=== PATIENT | female | born 1965 | race Caucasian/White ===

== ENCOUNTER 2018-07-28 00:24 | Observation (INO) | payer OTHER, SELFPAY ==
--- OUTSIDE RECORDS SUMMARY | 2018-07-28 00:26 | XMS REPORT ---
:1965 Author Organization eClinicalWorks Care Team Providers Name Role Phone [place], Ragini Provider Role Unavailable Allergies, Adverse Reactions, Alerts Substance Reaction Event Type Nitrofurantoin Macrocrystal tacycardia with PVS's Drug Allergy Cardizem rash Drug Allergy Problems Problem Type Condition Code Onset Dates Condition Status Problem Atrial fibrillation I48.91 Active Problem Hypertension I10 Active Assessment Atrial fibrillation I48.91 Active Assessment Hypertension I10 Active Medications Medication Code Code Instructions Start End Date Status Dosage System Date Bisoprolol [facility] 57480909365 5 MG Oral Once a Active take 1/2 Fumarate day tablet by mouth once a day Results No Known Results Summary Purpose eClinicalWorks Submission
--- OUTSIDE RECORDS SUMMARY | 2018-07-28 00:26 | XMS REPORT ---
:1965 Author Organization eClinicalWorks Care Team Providers Name Role Phone Ragini Pack Provider Role Unavailable Allergies, Adverse Reactions, Alerts Substance Reaction Event Type Nitrofurantoin Macrocrystal tacycardia with PVS's Drug Allergy Cardizem rash Drug Allergy Problems Problem Type Condition Code Onset Dates Condition Status Problem Atrial fibrillation I48.91 Active Assessment Encounter for screening mammogram Z12.31 Active for breast cancer Problem Hypertension I10 Active Assessment Well woman exam with routine Z01.419 Active gynecological exam Medications Medication Code System Code Instructions Start End Date Status Dosage Date Bisoprolol [facility] 21732069206 5 MG Oral Active TAKE 1/2 Fumarate TABLET BY MOUTH ONCE A DAY Results No Known Results Summary Purpose eClinicalWorks Submission
--- OUTSIDE RECORDS SUMMARY | 2018-07-28 00:26 | XMS REPORT ---
:1965 Author Organization eClinicalWorks Care Team Providers Name Role Phone Ragini Pack Provider Role Unavailable Allergies No Known Allergies Problems Problem Type Condition Code Onset Dates Condition Status Problem Atrial fibrillation I48.91 Active Problem Hypertension I10 Active Medications No Known Medications Results No Known Results Summary Purpose eClinicalWorks Submission
[2018-07-28 02:11] LABS: Absolute Lymphocytes (CBC) 1.2 K/uL (0.7-4.9); Absolute Monocytes 0.3 K/uL (0.1-1.3); Absolute Neutrophil 7.9 K/uL (1.8-8.0); Basophils % 0.1 % (0-1.3); Eosinophils % 0.2 % (0-4.4); Hematocrit 42.6 % (36.0-45.0); Lymphocytes % 12.8 % (15.3-44.8); MPV 8.6 fL (7.6-11.3); Monocytes % 3.4 % (3.3-12.3)
[2018-07-28 02:19] LABS: Protime INR 1.07
[2018-07-28 02:35] LABS: ALT/SGPT 26 U/L (12-78); AST/SGOT 17 U/L (15-37); Albumin 4.2 g/dL (3.4-5.0); Alkaline Phosphatase 57 U/L (45-117); BUN Blood Urea Nitrogen 9 mg/dL (7-18); Bicarbonate 26 mmol/L (21-32); Bilirubin Direct 0.1 mg/dL (0-0.2); Bilirubin Total 0.4 mg/dL (0.2-1.0); Glucose Level 98 mg/dL (74-106); NT PRO-BNP 63 pg/mL (<125); Potassium 3.7 mmol/L (3.5-5.1); Protein, Total 7.6 g/dL (6.4-8.2); Sodium Level 141 mmol/L (136-145); Troponin (Emerg Dept Use Only) < 0.02 ng/mL (0.0-0.045)
[2018-07-28] MEDS ORDERED: METOPROLOL TARTRATE 5 MG/5 ML INJ IV ONE (02:45)
--- NOTE | 2018-07-28 03:40 | ER ---
Nurse's Notes [facility] Name: Keke Cantrell Age: 53 yrs Sex: Female : 1965 Arrival Date: 07/28/2018 Time: 00:25 Bed 19 Private MD: Diagnosis: Ventricular premature depolarization Presentation: 07/28 00:34 Presenting complaint: Patient states: palpitations started today, Sunday night pt tl3 states that she was feeling dizzy, feels her heart beat "skipping". Transition of care: patient was not received from another setting of care. Onset of symptoms. Risk Assessment: Do you want to hurt yourself or someone else? Patient reports no desire to harm self or others. Initial Sepsis Screen: Does the patient meet any 2 criteria? No. Patient's initial sepsis screen is negative. Does the patient have a suspected source of infection? No. Patient's initial sepsis screen is negative. Care prior to arrival: None. 00:34 Method Of Arrival: Ambulatory tl3 00:34 Method Of Arrival: Ambulatory tl3 00:34 Acuity: ALENA 3 tl3 Triage Assessment: 00:39 General: Appears uncomfortable, slender, well groomed, well developed, well nourished, tl3 Behavior is calm, cooperative, appropriate for age. Pain: Complains of pain in right sided headache. 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 - Social history:: Smoking status: Patient/guardian denies using tobacco, never smoked. - Ebola Screening: : No symptoms or risks identified at this time. Screenin:00 Abuse screen: Denies threats or abuse. Denies injuries from another. Nutritional rr5 screening: No deficits noted. Tuberculosis screening: No symptoms or risk factors identified. Fall Risk None identified. Assessment: 01:00 General: Appears in no apparent distress. uncomfortable, Behavior is calm, cooperative, rr5 appropriate for age. Pain: Denies pain. Neuro: Level of Consciousness is awake, alert, obeys commands, Oriented to person, place, time, situation. Cardiovascular: Reports palpitations, Capillary refill < 3 seconds Patient's skin is warm and dry. Respiratory: Airway is patent Respiratory effort is even, unlabored, Respiratory pattern is regular, symmetrical. GI: Abdomen is flat, Reports nausea, vomiting, indigestion. 01:00 : No signs and/or symptoms were reported regarding the genitourinary system. EENT: No rr5 signs and/or symptoms were reported regarding the EENT system. Derm: No signs and/or symptoms reported regarding the dermatologic system. Musculoskeletal: No signs and/or symptoms reported regarding the musculoskeletal system. 02:00 Reassessment: Patient appears in no apparent distress at this time. awaiting for rr5 reports Patient states feeling better. Patient states symptoms have improved. 02:55 Reassessment: Patient appears in no apparent distress at this time. Patient and/or rr5 family updated on plan of care and expected duration. Pain level reassessed. reassess by Rahul KUMAR, no complaints made. Patient states feeling better. Patient states symptoms have improved. 03:35 Reassessment: Patient appears in no apparent distress at this time. Patient and/or rr5 family updated on plan of care and expected duration. Pain level reassessed. Rahul KUMAR spoke to patient and decided for admission Patient states feeling better. Patient states symptoms have improved. 04:25 Reassessment: Patient appears in no apparent distress at this time. Patient and/or rr5 family updated on plan of care and expected duration. Pain level reassessed. no complaints made, comfortable on lying position. awaiting for room assignment. Patient states symptoms have improved. 05:00 Reassessment: Patient appears in no apparent distress at this time. Patient and/or rr5 family updated on plan of care and expected duration. Pain level reassessed. examined by dr. cintron. Vital Signs: 00:39 BP 135 / 89; Pulse 81; Resp 18; Temp 98.6; Pulse Ox 99% ; Weight 63.5 kg; Height 5 ft. tl3 5 in. (165.10 cm); 01:57 BP 125 / 80; Pulse 82; Resp 17; Pulse Ox 99% on 4 lpm NC; rr5 02:50 BP 115 / 89; Pulse 89; Resp 16; Pulse Ox 99% on 4 lpm NC; rr5 03:30 BP 121 / 70; Pulse 79; Resp 17; Pulse Ox 99% 4 lpm ; rr5 04:10 BP 118 / 76; Pulse 73; Resp 17; Pulse Ox 99% on 4 lpm NC; rr5 05:00 BP 116 / 83; Pulse 67; Resp 15; Pulse Ox 99% on 4 lpm NC; rr5 00:39 Body Mass Index 23.30 (63.50 kg, 165.10 cm) tl3 ED Course: 00:25 Patient arrived in ED. as 00:36 Triage completed. tl3 00:39 Arm band placed on left wrist. tl3 00:53 Jesús Mcfarland, THAI is Primary Nurse. rr5 01:00 Patient has correct armband on for positive identification. Bed in low position. Call rr5 light in reach. Side rails up X2. secured entrance monitor on. Pulse ox on. NIBP on. 01:03 Rahul Frey PA is PHCP. jr8 01:03 Erik Peace MD is Attending Physician. jr8 01:10 EKG completed in triage. Results shown to MD. rr5 01:29 Inserted saline lock: 22 gauge in right antecubital area, using aseptic technique. fu Blood collected. 02:08 X-ray completed. Portable x-ray completed in exam room. Patient tolerated procedure sg4 well. 02:09 XRAY Chest (1 view) In Process Unspecified. EDMS 03:39 Waqas Cintron MD is Hospitalizing Provider. jr8 05:29 No provider procedures requiring assistance completed. Patient admitted, IV remains in rr5 place. Administered Medications: 02:50 Drug: Metoprolol 2.5 mg {Note: bp115/89 CR 89 bpm.} Route: IVP; Site: right antecubital;rr5 04:25 Follow up: Response: No adverse reaction rr5 Outcome: 03:39 Decision to Hospitalize by Provider. jr8 05:57 Admitted to Tele accompanied by nurse, via wheelchair, with chart, Report called to rr5 brian 05:57 Condition: stable 05:57 Instructed on the need for admit. 05:58 Patient left the ED. rr5 Signatures: Dispatcher [employer] EDWI Taylor Chu as Rahul Frey PA PA jr8 David Jason, RN RN Vilma Donovan RN RN 3 Marian Fernandez [facility] Jesús Mcfarland, RN RN rr5 Corrections: (The following items were deleted from the chart) : 02:00 Reassessment: Patient appears in no apparent distress at this time. Patient rr5 and/or family updated on plan of care and expected duration. Pain level reassessed. refused for admission for now,wants to speak first to ED provider regarding his admission. Patient states feeling better. Patient states symptoms have improved. rr5 03: 02:55 Reassessment: Patient appears in no apparent distress at this time. Patient rr5 and/or family updated on plan of care and expected duration. Pain level reassessed. discharge instruction and prescription given and explained without complaints made. Patient states feeling better. Patient states symptoms have improved. rr5
--- NOTE | 2018-07-28 03:40 | EDPHYS ---
Physician Documentation [facility] Name: Keke Cantrell Age: 53 yrs Sex: Female : 1965 Arrival Date: 07/28/2018 Time: 00:25 Bed 19 Private MD: ED Physician Erik Peace HPI: 07/28 02:23 This 53 yrs old Female presents to ER via Ambulatory with complaints of jr8 Palpitations. 02:23 The patient presents with a history of irregular heart beat, heart skipping beats. jr8 Context: The symptoms occur at rest. Onset: The symptoms/episode began/occurred acutely, today. Duration: The patient or guardian reports multiple episodes, that are intermittent, that wax and wane, with no pattern. Modifying factors: The symptoms are aggravated by light activity, The symptoms are alleviated by rest. Associated signs and symptoms: The patient has no apparent associated signs or symptoms. Severity of symptoms: At their worst the symptoms were moderate in the emergency department the symptoms have improved. It is unknown whether or not the patient has had similar symptoms in the past. The patient has not recently seen a physician. history of atrial fib. Currently on beta niranjan. Stated that when she has that she feels racing hear rate. Tonight it feels as if it is skipping beats and that some of the beats are erratic . 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 - Social history:: Smoking status: Patient/guardian denies using tobacco, never smoked. - Ebola Screening: : No symptoms or risks identified at this time. ROS: 02:23 Eyes: Negative for injury, pain, redness, and discharge, ENT: Negative for injury, jr8 pain, and discharge, Neck: Negative for injury, pain, and swelling, Respiratory: Negative for shortness of breath, cough, wheezing, and pleuritic chest pain, Abdomen/GI: Negative for abdominal pain, nausea, vomiting, diarrhea, and constipation, Back: Negative for injury and pain, MS/Extremity: Negative for injury and deformity, Skin: Negative for injury, rash, and discoloration, Neuro: Negative for headache, weakness, numbness, tingling, and seizure. :23 Cardiovascular: Positive for palpitations. Exam: :23 Eyes: Pupils equal round and reactive to light, extra-ocular motions intact. Lids and jr8 lashes normal. Conjunctiva and sclera are non-icteric and not injected. Cornea within normal limits. Periorbital areas with no swelling, redness, or edema. ENT: Nares patent. No nasal discharge, no septal abnormalities noted. Tympanic membranes are normal and external auditory canals are clear. Oropharynx with no redness, swelling, or masses, exudates, or evidence of obstruction, uvula midline. Mucous membranes moist. Neck: Trachea midline, no thyromegaly or masses palpated, and no cervical lymphadenopathy. Supple, full range of motion without nuchal rigidity, or vertebral point tenderness. No Meningismus. Cardiovascular: Regular rate and rhythm with a normal S1 and S2. No gallops, murmurs, or rubs. Normal PMI, no JVD. No pulse deficits. Respiratory: Lungs have equal breath sounds bilaterally, clear to auscultation and percussion. No rales, rhonchi or wheezes noted. No increased work of breathing, no retractions or nasal flaring. Abdomen/GI: Soft, non-tender, with normal bowel sounds. No distension or tympany. No guarding or rebound. No evidence of tenderness throughout. Back: No spinal tenderness. No costovertebral tenderness. Full range of motion. Skin: Warm, dry with normal turgor. Normal color with no rashes, no lesions, and no evidence of cellulitis. MS/ Extremity: Pulses equal, no cyanosis. Neurovascular intact. Full, normal range of motion. Neuro: Awake and alert, GCS 15, oriented to person, place, time, and situation. Cranial nerves II-XII grossly intact. Motor strength 5/5 in all extremities. Sensory grossly intact. Cerebellar exam normal. Normal gait. Vital Signs: 00:39 BP 135 / 89; Pulse 81; Resp 18; Temp 98.6; Pulse Ox 99% ; Weight 63.5 kg; Height 5 ft. tl3 5 in. (165.10 cm); 01:57 BP 125 / 80; Pulse 82; Resp 17; Pulse Ox 99% on 4 lpm NC; rr5 02:50 BP 115 / 89; Pulse 89; Resp 16; Pulse Ox 99% on 4 lpm NC; rr5 03:30 BP 121 / 70; Pulse 79; Resp 17; Pulse Ox 99% 4 lpm ; rr5 04:10 BP 118 / 76; Pulse 73; Resp 17; Pulse Ox 99% on 4 lpm NC; rr5 05:00 BP 116 / 83; Pulse 67; Resp 15; Pulse Ox 99% on 4 lpm NC; rr5 00:39 Body Mass Index 23.30 (63.50 kg, 165.10 cm) tl3 MDM: 01:06 Patient medically screened. jr8 02:23 ED course: Patient with occasionally have PVC that causes transient short pause which jr8 has been discovered on the 4 lead monitoring . 03:38 Data reviewed: vital signs, nurses notes, lab test result(s), EKG, radiologic studies, jr8 plain films, and as a result, I will admit patient. Data interpreted: Pulse oximetry: on room air is 99 %. Interpretation: normal. Counseling: I had a detailed discussion with the patient and/or guardian regarding: the historical points, exam findings, and any diagnostic results supporting the discharge/admit diagnosis, lab results, radiology results, the need for further work-up and treatment in the hospital. Physician consultation: Waqas Turner MD was called at 03:39, was contacted at 03:39, regarding admission, to the telemetry unit. consult, patient's condition, and will see patient. 03:40 ED course: Detailed discussion with patient about what her dysrhythmia is. That from an jr8 emergency stand point other then oxygen and beta blockers for this particular problem. There is nothing more that we can do. Offered admission to see lpn rn which patient would like to do. Dr. Turner accepted for observation . 07/28 01:52 Order name: Basic Metabolic Panel; Complete Time: 02:38 8 07/28 01:52 Order name: CBC with Diff; Complete Time: 02:15 8 07/28 01:52 Order name: LFT's; Complete Time: 02:38 8 07/28 01:52 Order name: Magnesium; Complete Time: 02:38 jr8 07/28 01:52 Order name: NT PRO-BNP; Complete Time: 02:38 8 07/28 01:52 Order name: PT-INR; Complete Time: 02:30 07/28 01:52 Order name: Troponin (emerg Dept Use Only); Complete Time: 02:38 8 07/28 03:40 Order name: TSH; Complete Time: 06:13 8 07/28 03:40 Order name: T4 Free; Complete Time: 06:13 07/28 04:23 Order name: Basic Metabolic Panel EDMS 07/28 04:23 Order name: Basic Metabolic Panel EDMS 07/28 04:23 Order name: CBC with Automated Diff EDMS 07/28 04:23 Order name: CBC with Automated Diff EDMS 07/28 04:23 Order name: Lipid Profile EDNC 07/28 01:52 Order name: XRAY Chest (1 view); Complete Time: 06:13 07/28 01:52 Order name: EKG; Complete Time: 01:53 07/28 01:52 Order name: Cardiac monitoring; Complete Time: :07/28 01:52 Order name: EKG - Nurse/Tech; Complete Time: :07/28 01:52 Order name: IV Saline Lock; Complete Time: 07/28 01:52 Order name: Labs collected and sent; Complete Time: 07/28 01:52 Order name: O2 Per Protocol; Complete Time: : 07/28 01:52 Order name: O2 Sat Monitoring; Complete Time: : 07/28 04:23 Order name: CONS Physician Consult EDNC 07/28 04:23 Order name: Heart Healthy EDNC 07/28 04:23 Order name: Echo with Doppler EDMS 07/28 04:23 Order name: Echo with Doppler EDNC 07/28 04:23 Order name: Lipid Profile EDNC Administered Medications: 02:50 Drug: Metoprolol 2.5 mg {Note: bp115/89 CR 89 bpm.} Route: IVP; Site: right antecubital;rr5 04:25 Follow up: Response: No adverse reaction rr5 Disposition: 07/28/18 03:39 Hospitalization ordered by Waqas Turner for Observation. Preliminary diagnosis is Ventricular premature depolarization. - Bed requested for Telemetry/MedSurg (observation). - Status is Observation. rr5 - Condition is Stable. - Problem is new. - Symptoms have improved. UTI on Admission? No Addendum: 08/06/2018 11:21 Co-signature as Attending Physician, Erik Peace MD I agree with the assessment and c bailey plan of care. Signatures: Dispatcher [employer] EDNC Erik Peace MD MD cha Roszak, Josh, PA PA jr8 Alicia Fernandez, RN RN cg Vilma Raphael RN RN tl3 Jesús Mcfarland RN RN rr5 Corrections: (The following items were deleted from the chart) 07/28 04:38 03:39 Hospitalization Ordered by Waqas Turner MD for Observation. Preliminary cg diagnosis is Ventricular premature depolarization. Bed requested for Telemetry/MedSurg (observation). Status is Observation. Condition is Stable. Problem is new. Symptoms have improved. UTI on Admission? No. jr8 05:58 04:38 07/28/2018 03:39 Hospitalization Ordered by Waqas Turner MD for Observation. rr5 Preliminary diagnosis is Ventricular premature depolarization. Bed requested for Telemetry/MedSurg (observation). Status is Observation. Condition is Stable. Problem is new. Symptoms have improved. UTI on Admission? No. cg
[2018-07-28] MEDS ORDERED: ACETAMINOPHEN 500 MG TAB PO PRN (04:19)
[2018-07-28] MEDS ORDERED: MORPHINE 4 MG/ML SYR IV PRN (04:19)
[2018-07-28] MEDS ORDERED: ALPRAZOLAM 0.25 MG TABLET PO PRN (04:19)
[2018-07-28 04:27] LABS: Thyroid Stimulating Hormone 1.75 uIU/mL (0.360-3.740)
[2018-07-28] MEDS ORDERED: METOPROLOL TAR 50 MG TAB PO SCH (05:00)
[2018-07-28 07:38] VITALS: BMI 23.3
[2018-07-28] MEDS ORDERED: BISOPROLOL 5 MG TABLET PO SCH ×3 (09:00→21:00)
[2018-07-28] MEDS ORDERED: ASPIRIN EC 81 MG TAB PO SCH (09:00)
[2018-07-28] MEDS ORDERED: ENOXAPARIN 60 MG/0.6 ML SQ SCH (09:00)
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
--- NOTE | 2018-07-28 12:20 | RAD REPORT ---
EXAM DESCRIPTION: RAD - Chest Single View - 07/28/2018 2:09 am CLINICAL HISTORY: DYSPNEA Chest pain. COMPARISON: No comparisons FINDINGS: Portable technique limits examination quality. The lungs are grossly clear. The heart is normal in size. No displaced fractures. IMPRESSION: No acute intrathoracic process suspected.
--- NOTE | 2018-07-28 17:27 | EKG ---
Test Date: 2018-07-28 Test Time: 01:04:21 Agricultural Equipment Salesperson: RR MEASUREMENT RESULTS: Intervals: Rate: 76 ME: 136 QRSD: 72 QT: 384 QTc: 432 [place]: P: 71 ME: 136 QRS: -17 T: 8 INTERPRETIVE STATEMENTS: Normal sinus rhythm Low voltage QRS Borderline ECG Compared to ECG 07/05/1992 18:25:00 Low QRS voltage now present Sinus arrhythmia no longer present Electronically Signed On 07-28-18 17:18:00 PATIENT SERVICE TECHNICIAN PST by Hans Muir
[2018-07-28 17:34] VITALS: O2SAT 98
[2018-07-28 17:41] VITALS: BP 105/65; TEMP 98.3
--- NOTE | 2018-07-29 02:55 | CON ---
Date of Consultation: 07/28/[address] Lombardo's service on 07/28/2018. Reason For Consultation: Atrial fibrillation with rapid ventricular response. History Of Present Illness: Ms. Cantrell is a 53-year-old white woman. She has a history of atrial fibr illation in the past for which she has taken bisoprolol basically at a very low dose. This has been going on on and off for about 10 years, but apparently this episode was different, it was faster with more irregularities, gave her some discomfort in the chest, and she came in. She was in sinus rhyth m after beta-blockers in the emergency room. She is allergic to diltiazem and nitrofurantoin, which she has tried apparently in the past for her atrial fibrillation. She denied nausea, vomiting, diaph oresis, PND, orthopnea, pedal edema, or syncope. Denied excessive use of caffeine. Denied excessive use carbohydrate. Denied any excessive stress or energy drinks. She has a normal thyroid. Past Medical History: As stated above. Allergies: INCLUDE DILTIAZEM AND NITROFURANTOIN. Review of Systems: Negative. Social History: Negative. Family History: Noncontributory. Physical Examination: General: She is very anxious about her worsening atrial fibrillation, asking to know the cause of it and why has it worsened. She is in sinus rhythm, afebrile. HEENT: Negative. Neck: Supple with no bruit. Chest: Clear. Cardiac: Normal. Abdomen: Benign. Extremities: Revealed no clubbing, cyanosis, or edema. Diagnostic Data: All within normal limit. Impression And Plan: Paroxysmal atrial fibrillation in a 53-year-old lady without any significant pa st medical history except for the atrial fibrillation. She has probably a CHADS score 1, and I think aspirin is reasonable. I think we need to increase her Zebeta dose. She can go home. She needs to have an outpatient echocardiogram, Lexiscan, and discuss further options from an atrial fibrillation standpoint. We can certainly use a different beta niranjan such as Toprol. We can certainly load he r up with Betapace if she wants to. Anticoagulation will be decided after the echocardiogram is done . ROBERT/DARIELA Voice ID: [id number] Report ID: [id number]
--- NOTE | 2018-07-29 09:54 | P.DS ---
Admission Date: 07/28/18 Discharge Date: 07/28/18 Disposition: ROUTINE DISCHARGE Discharge Condition: FAIR Reason for Admission: Arrhythmia - Problems (1) Atrial fibrillation with RVR Onset Date: 07/28/18 Status: Acute Brief History of Present Illness: Patient presented to the ER with trigeminy and palpations. She had a negative troponins. Was admitted for observations. Hospital Course: Patients palpations resolved. She was seen by Dr. Muir. Unfortunately we could not have an echo over the holiday weekend. The patient was feeling good and agreed to discharge. She is to be on a low dose aspirin. Continue her bisoporol. The patient can follow up with Dr. Muir and Pritesh Pack Vital Signs/Physical Exam: Temp Pulse Resp BP Pulse Ox 98.3 F 79 18 105/65 98 07/28/18 19:55 07/28/18 19:55 07/28/18 19:55 07/28/18 19:55 07/28/18 19:55 General: Alert, In no apparent distress HEENT: Atraumatic, PERRLA, EOMI Neck: Supple, JVD not distended Respiratory: Clear to auscultation bilaterally, Normal air movement Cardiovascular: Regular rate/rhythm, Normal S1 S2 Gastrointestinal: Normal bowel sounds, No tenderness Musculoskeletal: No tenderness Integumentary: No rashes Neurological: Normal speech, Normal tone, Normal affect Lymphatics: No axilla or inguinal lymphadenopathy Laboratory Data at Discharge: WBC 9.5 K/uL (4.3-10.9) 07/28/18 01:55 Hgb 14.6 g/dL (12.0-15.0) 07/28/18 01:55 Hct 42.6 % (36.0-45.0) 07/28/18 01:55 Plt Count 234 K/uL (152-406) 07/28/18 01:55 PT 12.6 SECONDS (9.5-12.5) H 07/28/18 01:55 INR 1.07 07/28/18 01:55 Sodium 141 mmol/L (136-145) 07/28/18 01:55 Potassium 3.7 mmol/L (3.5-5.1) 07/28/18 01:55 BUN 9 mg/dL (7-18) 07/28/18 01:55 Creatinine 0.68 mg/dL (0.55-1.3) 07/28/18 01:55 Glucose 98 mg/dL (74-106) 07/28/18 01:55 Magnesium 2.0 mg/dL (1.8-2.4) 07/28/18 01:55 Total Bilirubin 0.4 mg/dL (0.2-1.0) 07/28/18 01:55 AST 17 U/L (15-37) 07/28/18 01:55 ALT 26 U/L (12-78) 07/28/18 01:55 Alkaline Phosphatase 57 U/L (45-117) 07/28/18 01:55 Home Medications: Bisoprolol Fumarate [Zebeta*] 2.5 mg PO BEDTIME 07/28/18 Diet: Regular Activity: Ad arina Followup: Hans Muir MD [ACTIVE - CAN ADMIT] - (call to schedule appointment) Akanksha Pack NP [Primary Care Provider] - (call to schedule appointment) Time spent managing pt's care (in minutes): 25
== END 2018-07-28 19:53 | disposition home or self-care (01) ==
LOC: ER 00:24 → ERHOLD 04:19 → 4TH 05:42
PROVIDERS: ADMIT Internal Medicine; ATTEND Hospitalist
DX: I48.91 Unspecified atrial fibrillation (principal); R00.8 Other abnormalities of heart beat; Z87.891 Personal history of nicotine dependence
CPT/HCPCS: 36415; 71045; 80048; 80076; 83735; 83880; 84439; 84443; 84484; 85025; 85610; 93005; 96374; 99285; G0378; J1650

== ENCOUNTER 2018-09-19 12:07 | Inpatient (IN) | payer OTHER, SELFPAY ==
--- OUTSIDE RECORDS SUMMARY | 2018-09-19 12:10 | XMS REPORT ---
[...] Start End Date Status Dosage Date Bisoprolol [facility] [id number] 5 MG Oral Active TAKE 1/2 Fumarate TABLET BY MOUTH ONCE A DAY Results No Known Results Summary Purpose eClinicalWorks Submission
--- OUTSIDE RECORDS SUMMARY | 2018-09-19 12:10 | XMS REPORT ---
:1965 Author Organization eClinicalWorks Care Team Providers Name Role Phone [place], Ragini Provider Role Unavailable Allergies, Adverse Reactions, Alerts Substance Reaction Event Type Nitrofurantoin Macrocrystal tacycardia with PVS's Drug Allergy Cardizem rash Drug Allergy Problems Problem Type Condition Code Onset Dates Condition Status Problem Atrial fibrillation I48.91 Active Problem Hypertension I10 Active Assessment Atrial fibrillation I48.91 Active Assessment Hypertension I10 Active Medications Medication Code Code Instructions Start End Date Status Dosage System Date Bisoprolol [facility] [id number] 5 MG Oral Once a Active take 1/2 Fumarate day tablet by mouth once a day Results No Known Results Summary Purpose eClinicalWorks Submission
[2018-09-19] MEDS ORDERED: RIVAROXABAN 20 MG TABLET PO ONE (12:45)
[2018-09-19 12:46] LABS: Absolute Lymphocytes (CBC) 1.6 K/uL (0.7-4.9); Absolute Monocytes 0.5 K/uL (0.1-1.3); Absolute Neutrophil 6.7 K/uL (1.8-8.0); Basophils % 0.3 % (0-1.3); Eosinophils % 1.1 % (0-4.4); Hematocrit 47.2 % (36.0-45.0); MPV 8.5 fL (7.6-11.3); Monocytes % 5.3 % (3.3-12.3); Protime INR 1.06; RBC Red Blood Cell Count 5.54 M/uL (3.86-4.86)
[2018-09-19] MEDS ORDERED: NA CHLORIDE 0.9% 500 ML ONE (12:47)
[2018-09-19] MEDS ORDERED: SOTALOL HCL 80 MG TAB ONE (12:47)
--- NOTE | 2018-09-19 12:59 | EDPHYS ---
Physician Documentation [facility] Name: Keke Cantrell Age: 53 yrs Sex: Female : 1965 Arrival Date: 09/19/2018 Time: 12:13 Bed 24 Private MD: ED Physician Master Nicholas HPI: 09/19 12:43 This 53 yrs old Female presents to ER via Wheelchair with complaints of sent snw from PCP- Afib RVR. 12:43 Onset: The symptoms/episode began/occurred suddenly, yesterday. Associated signs and snw symptoms: Pertinent positives: chest pain. Modifying factors: The patient symptoms are alleviated by nothing, the patient symptoms are aggravated by activity, movement. The patient has experienced similar episodes in the past. The patient has been recently seen by a physician: Dr. Landry. two sisters with thyroid dysfunction. 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 - Social history:: Smoking status: Patient/guardian denies using tobacco. - Ebola Screening: : Patient denies exposure to infectious person Patient denies travel to an Ebola-affected area in the 21 days before illness onset. ROS: 12:41 Constitutional: Negative for fever, chills, and weight loss, Eyes: Negative for injury, snw pain, redness, and discharge, ENT: Negative for injury, pain, and discharge, Neck: Negative for injury, pain, and swelling, Cardiovascular: positive for chest pain, palpitations, no edema, Respiratory: Negative for shortness of breath, cough, wheezing, and pleuritic chest pain, Abdomen/GI: Negative for abdominal pain, nausea, vomiting, diarrhea, and constipation, Back: Negative for injury and pain, : Negative for injury, bleeding, discharge, and swelling, MS/Extremity: Negative for injury and deformity, Skin: Negative for injury, rash, and discoloration, Neuro: Negative for headache, weakness, numbness, tingling, and seizure. Exam: 12:40 Constitutional: This is a well developed, well nourished patient who is awake, alert, snw and in no acute distress. Head/Face: Normocephalic, atraumatic. Eyes: Pupils equal round and reactive to light, extra-ocular motions intact. Lids and lashes normal. Conjunctiva and sclera are non-icteric and not injected. Cornea within normal limits. Periorbital areas with no swelling, redness, or edema. ENT: Nares patent. No nasal discharge, no septal abnormalities noted. Tympanic membranes are normal and external auditory canals are clear. Oropharynx with no redness, swelling, or masses, exudates, or evidence of obstruction, uvula midline. Mucous membranes moist. Neck: Trachea midline, no thyromegaly or masses palpated, and no cervical lymphadenopathy. Supple, full range of motion without nuchal rigidity, or vertebral point tenderness. No Meningismus. Chest/axilla: Normal chest wall appearance and motion. Nontender with no deformity. No lesions are appreciated. Respiratory: Lungs have equal breath sounds bilaterally, clear to auscultation and percussion. No rales, rhonchi or wheezes noted. No increased work of breathing, no retractions or nasal flaring. Abdomen/GI: Soft, non-tender, with normal bowel sounds. No distension or tympany. No guarding or rebound. No evidence of tenderness throughout. Back: No spinal tenderness. No costovertebral tenderness. Full range of motion. Skin: Warm, dry with normal turgor. Normal color with no rashes, no lesions, and no evidence of cellulitis. MS/ Extremity: Pulses equal, no cyanosis. Neurovascular intact. Full, normal range of motion. Neuro: Awake and alert, GCS 15, oriented to person, place, time, and situation. Cranial nerves II-XII grossly intact. Motor strength 5/5 in all extremities. Sensory grossly intact. Cerebellar exam normal. Normal gait. Psych: Awake, alert, with orientation to person, place and time. Behavior, mood, and affect are within normal limits. 12:40 Cardiovascular: Rate: tachycardic, Rhythm: irregularly irregular, Heart sounds: normal, Edema: is not appreciated. Vital Signs: 12:16 BP 152 / 101; Pulse 150; Resp 21; Pulse Ox 98% on R/A; Weight 62.6 kg; Height 5 ft. 5 ca1 in. (165.10 cm); Pain 0/10; 13:00 BP 121 / 81; Pulse 141 MON; Resp 20; Pulse Ox 100% on R/A; ca1 13:30 BP 115 / 88; Pulse 130 MON; Resp 17; Pulse Ox 100% on R/A; ca1 14:00 BP 123 / 95; Pulse 137; Resp 17; Pulse Ox 98% on R/A; ca1 14:52 BP 101 / 82; Pulse 141; Resp 16; Pulse Ox 98% on R/A; ca1 15:22 BP 97 / 76; Pulse 135; Resp 20; Pulse Ox 98% on R/A; ca1 15:56 BP 101 / 73; Pulse 135; Resp 19; Pulse Ox 98% on R/A; ca1 16:39 BP 107 / 72; Pulse 126; Resp 19; Temp 98.9; Pulse Ox 99% ; lt1 17:05 BP 104 / 62; Pulse 138; Resp 18; Pulse Ox 98% on R/A; ca1 18:00 BP 94 / 70; Pulse 136; Resp 18; Pulse Ox 99% on R/A; ca1 12:16 Body Mass Index 22.97 (62.60 kg, 165.10 cm) ca1 MDM: 12:39 Data reviewed: vital signs, nurses notes. Data interpreted: Pulse oximetry: on room air snw is 98 %. Interpretation: normal. Counseling: I had a detailed discussion with the patient and/or guardian regarding: the historical points, exam findings, and any diagnostic results supporting the discharge/admit diagnosis, the presence of at least one elevated blood pressure reading (>120/80) during this emergency department visit, the need for further work-up and treatment in the hospital. Physician consultation: Amol Landry MD in the emergency department to see patient at 12:20. 12:49 Patient medically screened. snw 09/19 12:20 Order name: Basic Metabolic Panel; Complete Time: 13:14 snw 09/19 12:20 Order name: CBC with Diff; Complete Time: 14:12 snw 09/19 12:20 Order name: LFT's; Complete Time: 13:14 snw 09/19 12:20 Order name: Magnesium; Complete Time: 13:14 snw 09/19 12:20 Order name: NT PRO-BNP; Complete Time: 13:14 snw 09/19 12:20 Order name: PT-INR; Complete Time: 12:50 snw 09/19 12:20 Order name: Troponin (emerg Dept Use Only); Complete Time: 13:14 snw 09/19 12:20 Order name: TSH; Complete Time: 13:14 snw 09/19 12:57 Order name: CBC Smear Scan; Complete Time: 14:12 EDMS 09/19 14:04 Order name: Urine Culture em1 09/19 14:04 Order name: Urine Microscopic Only em1 09/19 14:06 Order name: Urine Dipstick--Ancillary (enter results) em1 09/19 14:06 Order name: Urine --Ancillary (enter results) em1 09/19 14:37 Order name: Urine --Ancillary; Complete Time: 14:39 EDMS 09/19 12:20 Order name: XRAY Chest (1 view) snw 09/19 12:20 Order name: EKG; Complete Time: 12:22 snw 09/19 12:20 Order name: Cardiac monitoring; Complete Time: 12:23 snw 09/19 12:20 Order name: EKG - Nurse/Tech; Complete Time: 12:23 snw 09/19 12:42 Order name: Echo with Doppler EDMS 09/19 13:32 Order name: CONS Physician Consult EDMS 09/19 14:02 Order name: RAD; Complete Time: 14:07 EDMS 09/19 14:38 Order name: Urine Dipstick-Ancillary; Complete Time: 14:39 EDMS 09/19 15:05 Order name: Troponin (emerg Dept Use Only) ca1 09/19 15:08 Order name: Urine Microscopic Only; Complete Time: 15:10 EDMS 09/19 15:52 Order name: Troponin (Emerg Dept Use Only); Complete Time: 15:58 EDMS 09/19 12:20 Order name: IV Saline Lock; Complete Time: 12:36 snw 09/19 12:20 Order name: Labs collected and sent; Complete Time: 12:36 snw 09/19 12:20 Order name: O2 Per Protocol; Complete Time: 12:23 snw 09/19 12:20 Order name: O2 Sat Monitoring; Complete Time: 12:23 snw 09/19 14:12 Order name: Recheck Vital Signs; Complete Time: 14:13 snw Administered Medications: 12:31 CANCELLED (other intervention used): Lopressor 5 mg IVP every 5 minutes; Hold for SBP < snw 100 or HR < 60. x3 12:31 CANCELLED (other intervention used): Lovenox 60 mg Sub-Q once snw 12:40 Drug: NS 0.9% 500 ml Route: IV; Rate: bolus; Site: right antecubital; ca1 13:30 Follow up: Response: No adverse reaction; IV Status: Completed infusion ca1 12:40 Drug: Betapace 80 mg Route: PO; ca1 14:01 Follow up: Response: No adverse reaction ca1 12:40 Drug: Xarelto 20 mg Route: PO; ca1 14:01 Follow up: Response: No adverse reaction ca1 Disposition: 09/20 06:55 Co-signature as Attending Physician, Master Nicholas MD I agree with the assessment and kdr plan of care. Disposition: 09/19/18 12:58 Hospitalization ordered by Lucy Dubois for Observation. Preliminary diagnosis is Atrial fibrillation and flutter. - Bed requested for Telemetry/MedSurg (observation). - Status is Observation. ca1 - Condition is Stable. - Problem is an acute exacerbation. - Symptoms are unchanged. UTI on Admission? No Signatures: Dispatcher [employer] [facility] Aundrea Avila RN RN Master Nicholas MD MD [facility] Nathalie Dhaliwal, EXTERNAL AUDITOR-C EXTERNAL AUDITOR-Csnw Nicole Clay RN RN ss Keila Mo RN RN ca1 Corrections: (The following items were deleted from the chart) 09/19 12:31 12:20 Lopressor 5 mg IVP every 5 minutes; Hold for SBP < 100 or HR < 60. x3 ordered. snwsnw 12:31 12:20 Lovenox 60 mg Sub-Q once ordered. snw snw 17:36 12:58 Hospitalization Ordered by Lucy Dubois MD for Observation. Preliminary diagnosis ss is Atrial fibrillation and flutter. Bed requested for Telemetry/MedSurg (observation). Status is Observation. Condition is Stable. Problem is an acute exacerbation. Symptoms are unchanged. UTI on Admission? No. snw 17:37 17:36 09/19/2018 12:58 Hospitalization Ordered by Lucy Dubois MD for Observation. dw Preliminary diagnosis is Atrial fibrillation and flutter. Bed requested for [facility] ER HOLD. Status is Observation. Condition is Stable. Problem is an acute exacerbation. Symptoms are unchanged. UTI on Admission? No. ss 18:25 17:37 09/19/2018 12:58 Hospitalization Ordered by Lucy Dubois MD for Observation. ca1 Preliminary diagnosis is Atrial fibrillation and flutter. Bed requested for Telemetry/MedSurg (observation). Status is Observation. Condition is Stable. Problem is an acute exacerbation. Symptoms are unchanged. UTI on Admission? No. dw
--- NOTE | 2018-09-19 12:59 | ER ---
Nurse's Notes [facility] Name: Keke Cantrell Age: 53 yrs Sex: Female : 1965 Arrival Date: 09/19/2018 Time: 12:13 Bed 24 Private MD: Diagnosis: Atrial fibrillation and flutter Presentation: 09/19 12:13 Presenting complaint: Nurse from Dr. Landry's office states that patient was sent over for evaluation and treatment of AFIB with RVR that began approximately at 1030 today. Pt reports she just felt irregular palpitations in her chest and has experienced this before. Transition of care: sent from Dr. Landry's office. Onset of symptoms was September 19, 2018. Risk Assessment: Do you want to hurt yourself or someone else? Patient reports no desire to harm self or others. Initial Sepsis Screen: Does the patient meet any 2 criteria? RR > 20 per min. HR > 90 bpm. Does the patient have a suspected source of infection? No. Patient's initial sepsis screen is negative. Care prior to arrival: EKG. 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 - Social history:: Smoking status: Patient/guardian denies using tobacco. - Ebola Screening: : Patient denies exposure to infectious person Patient denies travel to an Ebola-affected area in the 21 days before illness onset. Screenin:13 Abuse screen: Denies threats or abuse. Denies injuries from another. Nutritional ss screening: No deficits noted. Tuberculosis screening: Never had TB. Fall Risk None identified. Assessment: 12:13 General: Appears distressed, uncomfortable, Behavior is cooperative, anxious, tearful. ss Denies fever, feeling ill, fatigue, chills. Pain: Denies pain. Neuro: Level of Consciousness is awake, alert, obeys commands, Oriented to person, place, time, situation, Executive Recruiter are equal bilaterally Moves all extremities. Full function Gait is steady, Speech is normal, Facial symmetry appears normal, Pupils are PERRLA, Denies blurred vision dizziness, paresthesias numbness headache. Cardiovascular: Capillary refill < 3 seconds is brisk in bilateral fingers Rhythm is atrial fibrillation with rapid ventricular response Chest pain is denied. Respiratory: Airway is patent Trachea midline Respiratory effort is even, unlabored, Respiratory pattern is regular, symmetrical. GI: Patient currently denies diarrhea, nausea, vomiting. : No signs and/or symptoms were reported regarding the genitourinary system. EENT: Nares are clear Oral mucosa is moist. Throat is clear. Derm: Skin is intact, is healthy with good turgor, Skin is dry, Skin is pink, warm \T\ dry. normal. Musculoskeletal: Circulation, motion, and sensation intact. Range of motion: intact in all extremities, Swelling absent. 13:00 Reassessment: Patient appears in no apparent distress at this time. Patient and/or ca1 family updated on plan of care and expected duration. Pain level reassessed. Patient is alert, oriented x 3, equal unlabored respirations, skin warm/dry/pink. 14:00 Reassessment: Patient appears in no apparent distress at this time. Patient and/or ca1 family updated on plan of care and expected duration. Pain level reassessed. Patient is alert, oriented x 3, equal unlabored respirations, skin warm/dry/pink. Awaiting room assignment. Appears calm. 15:00 Reassessment: Patient appears in no apparent distress at this time. Patient and/or ca1 family updated on plan of care and expected duration. Pain level reassessed. Patient is alert, oriented x 3, equal unlabored respirations, skin warm/dry/pink. Family at bedside. Still for room assignment. Repeat EKG done by commercial hvac service technician. Repeat Trop drawn and sent to lab. 16:03 Reassessment: Patient appears in no apparent distress at this time. Patient and/or ca1 family updated on plan of care and expected duration. Pain level reassessed. Patient is alert, oriented x 3, equal unlabored respirations, skin warm/dry/pink. Awaiting room assignment. 17:05 Reassessment: Patient appears in no apparent distress at this time. Patient and/or ca1 family updated on plan of care and expected duration. Pain level reassessed. Patient is alert, oriented x 3, equal unlabored respirations, skin warm/dry/pink. 18:00 Reassessment: Patient appears in no apparent distress at this time. Patient and/or ca1 family updated on plan of care and expected duration. Pain level reassessed. Patient is alert, oriented x 3, equal unlabored respirations, skin warm/dry/pink. Vital Signs: 12:16 BP 152 / 101; Pulse 150; Resp 21; Pulse Ox 98% on R/A; Weight 62.6 kg; Height 5 ft. 5 ca1 in. (165.10 cm); Pain 0/10; 13:00 BP 121 / 81; Pulse 141 MON; Resp 20; Pulse Ox 100% on R/A; ca1 13:30 BP 115 / 88; Pulse 130 MON; Resp 17; Pulse Ox 100% on R/A; ca1 14:00 BP 123 / 95; Pulse 137; Resp 17; Pulse Ox 98% on R/A; ca1 14:52 BP 101 / 82; Pulse 141; Resp 16; Pulse Ox 98% on R/A; ca1 15:22 BP 97 / 76; Pulse 135; Resp 20; Pulse Ox 98% on R/A; ca1 15:56 BP 101 / 73; Pulse 135; Resp 19; Pulse Ox 98% on R/A; ca1 16:39 BP 107 / 72; Pulse 126; Resp 19; Temp 98.9; Pulse Ox 99% ; lt1 17:05 BP 104 / 62; Pulse 138; Resp 18; Pulse Ox 98% on R/A; ca1 18:00 BP 94 / 70; Pulse 136; Resp 18; Pulse Ox 99% on R/A; ca1 12:16 Body Mass Index 22.97 (62.60 kg, 165.10 cm) ca1 ED Course: 12:13 Patient arrived in ED. ss 12:13 Patient has correct armband on for positive identification. Bed in low position. Call light in reach. supervisor composing room on. Pulse ox on. NIBP on. 12:15 Triage completed. ss 12:16 Arm band placed on right wrist. ss 12:18 Nathalie Dhaliwal FNP-C is [facility]. snw 12:18 Master Nicholas MD is Attending Physician. snw 12:34 Inserted saline lock: 20 gauge in right antecubital area, using aseptic technique. ss Blood collected. 12:36 Keila Mo, THAI is Primary Nurse. ca1 12:49 EKG done, by commercial hvac service technician. reviewed by Master Nicholas MD. tc 12:58 Lucy Dubois MD is Hospitalizing Provider. snw 13:41 X-ray completed. Portable x-ray completed in exam room. Patient tolerated procedure sw well. 15:12 EKG done, by commercial hvac service technician. reviewed by Nathalie JAVIER Repeat EKG. at1 17:48 No provider procedures requiring assistance completed. Patient admitted, IV remains in ca1 place. Administered Medications: 12:31 CANCELLED (other intervention used): Lopressor 5 mg IVP every 5 minutes; Hold for SBP < snw 100 or HR < 60. x3 12:31 CANCELLED (other intervention used): Lovenox 60 mg Sub-Q once snw 12:40 Drug: NS 0.9% 500 ml Route: IV; Rate: bolus; Site: right antecubital; ca1 13:30 Follow up: Response: No adverse reaction; IV Status: Completed infusion ca1 12:40 Drug: Betapace 80 mg Route: PO; ca1 14:01 Follow up: Response: No adverse reaction ca1 12:40 Drug: Xarelto 20 mg Route: PO; ca1 14:01 Follow up: Response: No adverse reaction ca1 Outcome: 12:58 Decision to Hospitalize by Provider. snw 17:59 Admitted to Tele accompanied by tech, via wheelchair, room 412, with chart, Report ca1 called to Kevin Jj RN 17:59 Condition: stable 17:59 Instructed on the need for admit. 18:25 Patient left the ED. ca1 Signatures: Nathalie Dhaliwal, CONCEPCION CERTIFIED FIRST ASSISTANT-Csnw Nicole Clay RN RN ss Alysia Tanner, transformer coil winder EKG Tat1 Radha Lara, transformer coil winder EKG Ttc Suzanne Ma Keila Mo, RN RN ca1 Jolly Patton lt1 Corrections: (The following items were deleted from the chart) 15:22 15:00 Reassessment: Patient appears in no apparent distress at this time. Patient ca1 and/or family updated on plan of care and expected duration. Pain level reassessed. Patient is alert, oriented x 3, equal unlabored respirations, skin warm/dry/pink. Family at bedside. Still for room assignment. ca1 16:04 12:16 BP 152 / 101; Pulse 150bpm; Resp 21bpm; Pulse Ox 98% RA; 62.6 kg; Height 5 ft. 5 ca1 in.; BMI: 22.9; Pain 0/10; ss
[2018-09-19 13:08] LABS: ALT/SGPT 18 U/L (12-78); AST/SGOT 12 U/L (15-37); Albumin 4.2 g/dL (3.4-5.0); Alkaline Phosphatase 64 U/L (45-117); BUN Blood Urea Nitrogen 16 mg/dL (7-18); Bicarbonate 29 mmol/L (21-32); Bilirubin Direct < 0.1 mg/dL (0-0.2); Bilirubin Total 0.4 mg/dL (0.2-1.0); Glucose Level 92 mg/dL (74-106); Magnesium 2.1 mg/dL (1.8-2.4); NT PRO-BNP 54 pg/mL (<125); Protein, Total 8.1 g/dL (6.4-8.2); Sodium Level 142 mmol/L (136-145); Thyroid Stimulating Hormone 0.821 uIU/mL (0.360-3.740); Troponin (Emerg Dept Use Only) < 0.02 ng/mL (0.0-0.045)
--- NOTE | 2018-09-19 13:58 | RAD REPORT ---
EXAM DESCRIPTION: RAD - Chest Single View - 09/19/2018 1:39 pm CLINICAL HISTORY: Palpitations, a arrhythmia COMPARISON: July 2018 TECHNIQUE: AP portable chest image was obtained 1337 hours . FINDINGS: No focal lung parenchymal process. Lung markings match comparison. Heart and vasculature a re normal. No measurable pleural effusion and no pneumothorax. No acute bony abnormality seen. No acu te aortic findings suspected. IMPRESSION: No acute cardiopulmonary process.
[2018-09-19 14:03] LABS: Blood Morphology Comment NOT SEEN (NOT SEEN); Platelet Estimate ADEQ; Urine White Blood Cell Casts OK
[2018-09-19 14:37] LABS: Urine Blood NEGATIVE (NEG); Urine Glucose NEGATIVE (NEG); Urine Protein NEGATIVE (NEG)
[2018-09-19 15:06] LABS: Urine Bacteria <20 /HPF (<20); Urine RBC <5 /HPF (NONE SEEN)
[2018-09-19 15:07] LABS: Urine Culture Reflex Order NOT NEEDED
--- NOTE | 2018-09-19 16:56 | EKG ---
Test Date: 2018-09-19 Test Time: 14:59:33 Learning Center Instructor: ROSALBA MEASUREMENT RESULTS: Intervals: Rate: 133 LA: QRSD: 66 QT: 316 QTc: 470 [place]: P: LA: QRS: 4 T: 5 INTERPRETIVE STATEMENTS: Atrial fibrillation with rapid ventricular response Nonspecific T wave abnormality Abnormal ECG Compared to ECG 09/19/2018 12:24:48 no significant change from previous ECG Electronically Signed On 09-19-18 16:55:25 HARMONIC ANALYST by Amol Landry
--- NOTE | 2018-09-19 16:58 | EKG ---
Test Date: 2018-09-19 Test Time: 12:24:48 Drywall Sander: LAVELL MEASUREMENT RESULTS: Intervals: Rate: 142 NV: QRSD: 70 QT: 292 QTc: 449 [place]: P: NV: QRS: -10 T: -18 INTERPRETIVE STATEMENTS: Atrial fibrillation with rapid ventricular response Nonspecific T wave abnormality, probably digitalis effect Abnormal ECG Compared to ECG 07/28/2018 01:04:21 T-wave abnormality now present Sinus rhythm no longer present Electronically Signed On 09-19-18 16:58:00 DOCUMENTATION BILLING CLERK by Amol Landry
--- NOTE | 2018-09-19 17:41 | CON ---
History Of Present Illness: Ms. Cantrell is 53. She has enjoyed good health most of her life. Right be 2017, she was admitted to the hospital. She was having palpitations, heart racing, bu t by the time she reached the emergency room, her symptoms had resolved. She was in sinus rhythm. Acacia hu did not know the diagnosis. Some special attempts were made to see what it was, but she had no sym ptoms until today. Today, she again had it, went to my office, she was in AFib, heart rate about 150 , not comfortable, feeling sweaty and hot, so we sent her to the emergency room. She still is in Kristine b. The patient has no previous history of AFib being diagnosed. Past Medical History: She has had gallbladder surgery. She is multigravid. Never had diabetes or h ypertension. Medications: Presently, she is on no regular medications. Allergies: SHE IS ALLERGIC TO DILTIAZEM AND NITROFURANTOIN. Physical Examination: General: Alert, oriented, pleasant. Vital Signs: Heart rate about 140, blood pressure 110/60. Lungs: Clear. Heart: Irregularly irregular. Abdomen: Soft. Extremities: Normal. Impression: The patient has paroxysmal atrial fibrillation. Given that she has a CHADS-VASc score o f just 1, chronic anticoagulation is optional, but presently, I think she should have anticoagulation . We will give her Betapace 80 mg now, with 80 mg twice a day and see if we can reestablish sinus rh ythm. Then, we can decide about long-term anticoagulation or if she is intolerant of the Betapace, t hink about other antiarrhythmic drugs or EP referral. We can get an echocardiogram. It would be better to wait and do that until she is in normal rhythm. VALERY/DARIELA Voice ID: [id number] Report ID: [id number]
[2018-09-19] MEDS ORDERED: RIVAROXABAN 20 MG TABLET PO SCH (19:00)
[2018-09-19] MEDS: SOTALOL HCL 80 MG TAB PO SCH (19:07)
--- NOTE | 2018-09-19 19:16 | P.HP ---
Patient History Date of Service: 09/19/18 History of Present Illness: This is a 53-year-old female with no past medical history admitted for palpitations. Prior to 2017 which is in the hospital for palpitations /wheezing but at that time no diagnosis was found since her symptoms resolved. Since then, she states that she has had on and off heart racing/palpitation. Today she had it again, went to Dr. Landry is office. An EKG was done and on exam she was found to be in atrial fibrillation at a heart rate about 150. She was symptomatic as she was feeling sweaty and hot, uncomfortable. She was sent to the emergency room from Dr. Landry' office. In the ER, she was still found to be in atrial fibrillation. She was started on Betapace and several so in the ER. At the time of my exam, patient was alert oriented x3, hemodynamically stable and still in atrial fibrillation. Allergies diltiazem Allergy (Verified 07/28/18 07:28) Shortness of breath nitrofurantoin Adverse Reaction (Verified 07/28/18 07:28) palpitations Home Medications: Bisoprolol Fumarate [Zebeta*] 5 mg PO BEDTIME 07/28/18 Aspirin 1 tab PO DAILY 09/19/18 - Past Medical/Surgical History Diabetic: No -: AFIB -: Tubal ligation -: Cholesystectomy - Family History Father -: Diabetes - Social History Alcohol use: No CD- Drugs: No Caffeine use: Yes Review of Systems 10-point ROS is otherwise unremarkable Physical Examination - Vital Signs Temperature: 97.4 F Blood Pressure: 110/74 Pulse: 95 Respirations: 18 Pulse Ox (%): 100 - Physical Exam General: Alert, In no apparent distress, Oriented x3 HEENT: Atraumatic, PERRLA, Mucous membr. moist/pink, EOMI, Sclerae nonicteric Neck: Supple, 2+ carotid pulse no bruit, No LAD, Without JVD or thyroid abnormality Respiratory: Clear to auscultation bilaterally, Normal air movement Cardiovascular: Normal S1 S2, Irregular heart rate/rhythm Gastrointestinal: Normal bowel sounds, No tenderness Musculoskeletal: No tenderness Integumentary: No rashes Neurological: Normal gait, Normal speech, Normal strength at 5/5 x4 extr, Normal tone, Normal affect Lymphatics: No axilla or inguinal lymphadenopathy - Studies Laboratory Data (last 24 hrs) 09/19/18 12:30: PT 12.5, INR 1.06 09/19/18 12:30: WBC 8.9, Hgb 16.1 H, Hct 47.2 H, Plt Count 274 09/19/18 12:30: Sodium 142, Potassium 4.0, BUN 16, Creatinine 0.71, Glucose 92, Magnesium 2.1, Total Bilirubin 0.4, AST 12 L, ALT 18, Alkaline Phosphatase 64 Assessment and Plan - Problems (Diagnosis) (1) Atrial fibrillation with RVR Onset Date: 07/28/18 Current Visit: No Status: Acute - Plan This is a 53-year-old female with: Atrial fibrillation with RVR Cardiology consult Continue Betapace and xarelto for anticoagulation. Echo ordered, pending NPO after midnight DVT prophylaxis: Xarelto GI prophylaxis: None Diet: NPO after midnight Disposition: Admit to floor. Pending symptomatic improvement. - Advance Directives Does patient have a Living Will: No Does patient have a Durable POA for Healthcare: No
[2018-09-19 23:09] VITALS: BMI 22.9
[2018-09-20] MEDS: SOTALOL HCL 80 MG TAB PO SCH (05:07)
[2018-09-20 06:16] LABS: Absolute Lymphocytes (CBC) 2.8 K/uL (0.7-4.9); Absolute Monocytes 0.5 K/uL (0.1-1.3); Basophils % 0.3 % (0-1.3); Eosinophils % 1.8 % (0-4.4); Hematocrit 44.3 % (36.0-45.0); Lymphocytes % 37.6 % (15.3-44.8); MPV 8.4 fL (7.6-11.3); Monocytes % 7.3 % (3.3-12.3); RBC Red Blood Cell Count 5.17 M/uL (3.86-4.86)
[2018-09-20 06:29] LABS: ALT/SGPT 15 U/L (12-78); AST/SGOT 10 U/L (15-37); Albumin 3.5 g/dL (3.4-5.0); Alkaline Phosphatase 53 U/L (45-117); BUN Blood Urea Nitrogen 18 mg/dL (7-18); Bicarbonate 26 mmol/L (21-32); Bilirubin Total 0.4 mg/dL (0.2-1.0); Glucose Level 88 mg/dL (74-106); Potassium 4.4 mmol/L (3.5-5.1); Protein, Total 6.6 g/dL (6.4-8.2); Sodium Level 144 mmol/L (136-145)
[2018-09-20] MEDS ORDERED: NA CHLORIDE 0.9% 1,000 ML IV SCH ×2 (10:00)
--- NOTE | 2018-09-20 16:54 | ECHO ---
HEIGHT: 5 ft 5 in WEIGHT: 138 lb 0 oz DATE OF STUDY: 09/20/[address]: Amol Landry MD 2-DIMENSIONAL: YES M.MODE: YES DOPPLER: YES COLOR FLOW: YES TDS: PORTABLE: DEFINITY: BUBBLE STUDY: DIAGNOSIS: ATRIAL FIBRILLATION CARDIAC HISTORY: CATHERIZATION: NO SURGERY: NO PROSTHETIC VALVE: NO PACEMAKER: NO MEASUREMENTS (cm) DIASTOLIC (NORMALS) SYSTOLIC (NORMALS) IVSd 0.7 (0.6-1.2) LA Diam 2.8 (1.9-4.0) LVEF 64% LVIDd 4.1 (3.5-5.7) LVIDs 2.7 (2.0-3.5) %FS 35% LVPWd 0.8 (0.6-1.2) Ao Diam 2.7 (2.0-3.7) 2 DIMENSIONAL ASSESSMENT: RIGHT ATRIUM: NORMAL LEFT ATRIUM: NORMAL RIGHT VENTRICLE: NORMAL LEFT VENTRICLE: NORMAL TRICUSPID VALVE: NORMAL MITRAL VALVE: NORMAL PULMONIC VALVE: NORMAL AORTIC VALVE: NORMAL PERICARDIAL EFFUSION: NONE AORTIC ROOT: NORMAL LEFT VENTRICULAR WALL MOTION: NORMAL DOPPLER/COLOR FLOW: MILD TRICUSPID REGURGITATION. COMMENTS: MILD TRICUSPID REGURGITATION. NORMAL RIGHT VENTRICULAR SYSTOLIC PRESSURE. NORMAL LEFT VENTRICULAR SIZE AND FUNCTION. NORMAL LEFT ATRIUM SIZE. NO THROMBUS. TECHNOLOGIST: LILA KEY
[2018-09-20 17:27] VITALS: O2SAT 98
[2018-09-20 17:35] VITALS: BP 108/75; TEMP 97.6
--- NOTE | 2018-09-21 11:28 | PN ---
Date of Progress Note: 09/20/2018 Ms. Cantrell was admitted with atrial fibrillation, was started on Xarelto and Betapace by Dr. Landry. T his morning, she remained in atrial fibrillation but has only had 2 doses of Betapace. There is an e chocardiogram that is pending today. We will see what her echocardiogram shows prior to making final decision, but I would like to keep her for 1 more dose of Betapace. Hopefully, she will convert aft er that. Her CHADS score is low and a baby aspirin is plenty. She has had atrial fibrillation in past, status post cardioversion in [place]. We will see what her Betapace does today and make fi nal decisions after that. ROBERT/DARIELA Voice ID: [id number] Report ID: [id number]
--- NOTE | 2018-09-21 16:48 | P.SSS ---
Patient History Date of Service: 09/20/18 Reason for admission: AFib with RVR History of Present Illness: This is a 53-year-old female with no past medical history admitted for palpitations. Prior to 2017 which is in the hospital for palpitations /wheezing but at that time no diagnosis was found since her symptoms resolved. Since then, she states that she has had on and off heart racing/palpitation. Today she had it again, went to Dr. Landry is office. An EKG was done and on exam she was found to be in atrial fibrillation at a heart rate about 150. She was symptomatic as she was feeling sweaty and hot, uncomfortable. She was sent to the emergency room from Dr. Landry' office. In the ER, she was still found to be in atrial fibrillation. She was started on Betapace and several so in the ER. At the time of my exam, patient was alert oriented x3, hemodynamically stable and still in atrial fibrillation. Allergies diltiazem Allergy (Verified 09/19/18 20:22) Shortness of breath nitrofurantoin Adverse Reaction (Verified 09/19/18 20:22) palpitations Home Medications: Aspirin 1 tab PO DAILY 09/19/18 Aspirin 81 mg PO DAILY #30 tab.chew 09/20/18 Sotalol HCl [Betapace] 80 mg PO BID #60 tab 09/20/18 - Past Medical/Surgical History Diabetic: No -: AFIB -: Tubal ligation -: Cholesystectomy -: Tonsillectomy - Family History Father -: Diabetes Mother -: Stroke Sister -: Other (see notes) Notes: Thyroid Problems - Social History Smoking Status: Former smoker Alcohol use: No CD- Drugs: No Caffeine use: No Place of Residence: Home Review of Systems 10-point ROS is otherwise unremarkable Physical Examination - Vital Signs Temperature: 97.6 F Blood Pressure: 108/75 Pulse: 61 Respirations: 18 Pulse Ox (%): 98 - Physical Exam General: Alert, In no apparent distress, Oriented x3 HEENT: Atraumatic, PERRLA, Mucous membr. moist/pink, EOMI, Sclerae nonicteric Neck: Supple, 2+ carotid pulse no bruit, No LAD, Without JVD or thyroid abnormality Respiratory: Clear to auscultation bilaterally, Normal air movement Cardiovascular: Regular rate/rhythm, Normal S1 S2 Gastrointestinal: Normal bowel sounds, No tenderness Musculoskeletal: No tenderness Integumentary: No rashes Neurological: Normal gait, Normal speech, Normal strength at 5/5 x4 extr, Normal tone, Normal affect Lymphatics: No axilla or inguinal lymphadenopathy - Studies Microbiology Data (last 24 hrs): 09/19/18 12:47 Clean Catch Urine [place] Count - Final <10,000 CFU/ML. 09/19/18 12:47 Clean Catch Urine - Final MIXED MARIANNA. - Diagnosis (Problem(s)) (1) Atrial fibrillation with RVR Onset Date: 07/28/18 Status: Acute Treatment Summary: Atrial fibrillation with RVR Patient was admitted to the floor with tele. Cardiology was consulted. She was started on Betapace answer also. An echocardiogram was done, which was normal. Patient was then cleared for discharge from cardiology point of view. Prior to discharge, she was normal sinus rhythm, hemodynamically stable in no acute distress. She is tolerating a regular diet, ambulating without any concerns. She was discharged on Betapace answer also. She will follow up with Cardiology in a few days for further workup/management. - Disposition Disposition: ROUTINE DISCHARGE Condition: GOOD Consultations: Cardiology Patient Discharge Instructions: Please follow up with cardiology in 2-3 days. Diet: Regular Activity: Ad arina Time Spent Managing Pts Care (In Minutes): 55
== END 2018-09-20 17:33 | disposition home or self-care (01) | DRG 310 ==
LOC: ER 12:07 → ERHOLD 13:29 → 4TH 18:02 → OBSVTOIN 09-20 10:34
PROVIDERS: ADMIT Family Medicine; ATTEND Family Medicine
DX: I48.91 Unspecified atrial fibrillation (principal)
CPT/HCPCS: 36415; 71045; 80048; 80053; 80076; 81003; 81015; 81025; 83735; 83880; 84443; 84484; 85025; 85610; 87086; 87088; 93005; 93306; 94760; 96360; 99285; G0378; J7030

== ENCOUNTER 2020-04-15 14:03 | Emergency (ER) | payer SELFPAY ==
--- OUTSIDE RECORDS SUMMARY | 2020-04-15 14:14 | XMS REPORT | Continuity of Care Document ---
:1965 Author Organization [facility] t Address [address] [place] [address] Care Team Providers Name Role Phone Unavailable Unavailable Unavailable Problems Condition Condition Condition Status Onset Resolution Last Treating Co mments Source Name Details Category Date Date Treatment Clinician Date Atrial Atrial Diagnosis Active [facility] fibr[facility] fibrillati Nancy kes - on on [facility] Clin[facility] Hypertensi Hypertensi Diagnosis [facility] Allergies, Adverse Reactions, Alerts Allergy Allergy Status Severity Reaction(s) Onset Inactive Treating Comm ents Source Name Type Date Date Clinician Nitrofur Adverse Active tacycardia [facility] anto[facility] Reaction with PVS's [facility] Cardizem Adverse Active rash [facility] Reaction [facility] Medications Ordered Filled Start Stop Current Ordering Indication Dosage Frequency Signature Comments Components Source Medication Medication Date Date Medication? Clinician (SIG) Name Name Bisoprolol Bisoprolol Yes Ragini Pack take 1/[address] [facility] Fumarate Fumarate tablet by Nancy kes - mouth once [facility] a day l [facility] Procedures This patient has no known procedures. Encounters Start End Encounter Admission Attending Care Care Encounter Source Date/Time Date/Time Type Type Clinicians Facility Department ID 2018-03-07 2018-03-07 [facility] [id number] [facility] 10:00[facility]00 10:00:00 [facility] Medicine [facility] 2018-01-03 2018-01-03 [facility] [id number] [facility] 13:33:00 13:33:00 [facility] Medicine [facility] 2017-12-25 2017-12-25 [facility] [id number] [facility] 10:00:00 10:00:00 [facility] Medicine Outpati ent Clinics Results This patient has no known results.
[2020-04-15] MEDS ORDERED: SOTALOL HCL 80 MG TAB ONE (14:37)
[2020-04-15] MEDS ORDERED: ONDANSETRON 4 MG/2 ML VIAL ONE (14:38)
[2020-04-15] MEDS ORDERED: NA CHLORIDE 0.9% 500 ML ONE (14:38)
[2020-04-15] MEDS ORDERED: SOTALOL HCL 80 MG TAB PO SCH (15:00)
--- NOTE | 2020-04-15 15:46 | ER ---
Nurse's Notes [facility] Name: Keke Cantrell Age: 54 yrs Sex: Female : 1965 Arrival Date: 04/15/2020 Time: 14:04 Bed 4 Private MD: Diagnosis: Paroxysmal atrial fibrillation Presentation: 04/15 14:05 Chief complaint: Patient states: sent from Dr. Suarez's office for symptomatic Afib iw RVR, tried to give her an extra 1/2 dose of her sotalol but she still felt bad and HRwas still in 140's, pt feels dizzy and nauseated, symptoms started this morning. Coronavirus screen: At this time, the client does not indicate any symptoms associated with coronavirus-19. Ebola Screen: Patient negative for fever greater than or equal to 101.5 degrees Fahrenheit, and additional compatible Ebola Virus Disease symptoms Patient denies exposure to infectious person. Patient denies travel to an Ebola-affected area in the 21 days before illness onset. No symptoms or risks identified at this time. Initial Sepsis Screen: Does the patient meet any 2 criteria? No. Patient's initial sepsis screen is negative. Does the patient have a suspected source of infection? No. Patient's initial sepsis screen is negative. Risk Assessment: Do you want to hurt yourself or someone else? Patient reports no desire to harm self or others. Onset of symptoms was April 15, 2020. 14:05 Method Of Arrival: Wheelchair iw 14:05 Acuity: ALENA 2 iw Historical: - Allergies: 14:11 Diltiazem; iw 14:11 Nitrofurantoin Macrocrystal; iw - Home Meds: 14:11 aspirin 81 mg Oral TbEC 1 tab once daily [Active]; sotalol 80 mg Oral tab 1 tab 2 times iw per day [Active]; - PMHx: 14:11 Atrial Fib; iw - PSHx: 14:11 Tubal ligation; Cholecystectomy; Tonsillectomy; iw - Family history:: not pertinent. - Hospitalizations: : No recent hospitalization is reported. Screenin:37 Abuse screen: Denies threats or abuse. Nutritional screening: No deficits noted. aa5 Tuberculosis screening: No symptoms or risk factors identified. Fall Risk None identified. Assessment: 14:15 General: Appears uncomfortable, Behavior is anxious. Pain: Denies pain. Neuro: Level of aa5 Consciousness is awake, alert, obeys commands, Oriented to person, place, time, situation. Cardiovascular: Heart tones S1 S2 present Rhythm is atrial fibrillation with rapid ventricular response. Respiratory: Airway is patent Respiratory effort is even, unlabored, Respiratory pattern is regular, symmetrical, Breath sounds are clear bilaterally. GI: Abdomen is flat, non-distended, Bowel sounds present X 4 quads. Abd is soft and non tender X 4 quads. : No signs and/or symptoms were reported regarding the genitourinary system. EENT: No signs and/or symptoms were reported regarding the EENT system. Derm: Skin is pink, warm \T\ dry. Musculoskeletal: Range of motion: intact in all extremities. 14:37 Reassessment: Patient is alert, oriented x 3, equal unlabored respirations, skin aa5 warm/dry/pink. NSR at 83bpm noted on monitor, Dr. Scott at bedside. EKG ordered. . 14:37 Reassessment: Patient states symptoms have improved. aa5 14:39 Reassessment: VO to cancel all labs at this time and to cancel sotalol administration. .aa5 15:00 Reassessment: Patient is alert, oriented x 3, equal unlabored respirations, skin aa5 warm/dry/pink. Pt sitting up in bed, states no complaints at this time, remains NSR on monitor. . 15:30 Reassessment: Pt resting in bed with eyes closed, respirations even and unlabored. Skin aa5 is pink/warm/dry. . Cardiovascular: Rhythm is sinus rhythm. 16:20 Reassessment: Patient is alert, oriented x 3, equal unlabored respirations, skin aa5 warm/dry/pink. Denies dizziness, states feeling better. . Cardiovascular: Rhythm is sinus rhythm. Vital Signs: 14:05 BP 110 / 85; Pulse 132; Resp 16 S; Pulse Ox 98% on R/A; iw 14:37 BP 107 / 74; Pulse 83; Resp 20 S; Pulse Ox 100% on R/A; aa5 15:00 BP 98 / 68; Pulse 82; Resp 16 S; Pulse Ox 100% on R/A; aa5 15:30 BP 102 / 74; Pulse 84; Resp 18 S; Pulse Ox 100% on R/A; aa5 16:00 BP 99 / 72; Pulse 80; Resp 16 S; Pulse Ox 100% on R/A; aa5 ED Course: 14:04 Patient arrived in ED. iw 14:07 Hardy Scott MD is Attending Physician. rn 14:08 Triage completed. iw 14:15 Patient maintains SpO2 saturation greater than 95% on room air. aa5 14:15 Patient has correct armband on for positive identification. Bed in low position. Call aa5 light in reach. Side rails up X2. monitor tech on. Pulse ox on. NIBP on. 14:15 Arm band placed on. aa5 14:17 Tatiana Bowman, RN is Primary Nurse. aa5 14:20 EKG done, by ED staff, reviewed by Hardy Scott MD. dh3 14:35 Inserted saline lock: 20 gauge in left forearm, using aseptic technique. dh3 15:22 XRAY Chest (1 view) In Process Unspecified. EDMS 16:20 IV discontinued, intact, bleeding controlled, No redness/swelling at site. Pressure aa5 dressing applied. 16:20 No provider procedures requiring assistance completed. aa5 Administered Medications: 14:35 Drug: NS 0.9% 500 ml Route: IV; Rate: bolus; Site: left forearm; aa5 14:49 Not Given (Patient Refused): Zofran (Ondansetron) 4 mg IVP once; over 2 minutes aa5 14:49 Not Given (Physician Discretion): Sotalol 40 mg PO once aa5 Outcome: 15:45 Discharge ordered by . rn 16:20 Discharged to home ambulatory, with significant other. aa5 16:20 Condition: improved 16:20 Discharge instructions given to patient, Instructed on discharge instructions, follow up and referral plans. Demonstrated understanding of instructions, follow-up care. 16:22 Patient left the ED. aa5 Signatures: Dispatcher [employer] EDMS Yesica Castro RN RN iw Hardy Scott MD MD rn Calderon, Audri, RN RN 5 Clara Cronin 3 Corrections: (The following items were deleted from the chart) 14:08 14:05 Chief complaint: Patient states: sent from Dr. Suarez's office for symptomatic iw Afib RVR, tried to give her an extra 1/2 dose of her sotalol but she still felt bad and HRwas still in 140's, pt feels dizzy and nauseated iw 14:10 14:05 BP 110 / 85; Pulse 132bpm; Resp 16bpm; Spontaneous; Pulse Ox 98% RA; iw iw
--- NOTE | 2020-04-15 15:46 | EDPHYS ---
Physician Documentation [facility] Name: Keke Cantrell Age: 54 yrs Sex: Female : 1965 Arrival Date: 04/15/2020 Time: 14:04 Bed 4 Private MD: ED Physician Hardy Scott HPI: 04/15 15:41 This 54 yrs old Female presents to ER via Wheelchair with complaints of rn Irregular Pulse, Dizziness. 15:41 The patient presents with dizziness, lightheadedness. Onset: The symptoms/episode rn began/occurred this morning. Modifying factors: The symptoms are alleviated by nothing, the symptoms are aggravated by nothing. Severity of symptoms: At their worst the symptoms were mild in the emergency department the symptoms are unchanged. The patient has experienced similar episodes in the past. Reports hx of afib, feels like went back into it this morning, seen at cardiology clinic, given extra 1/2 tab of sotalol, and did not help, + mild dizziness. No other complaints. . Historical: - Allergies: 14:11 Diltiazem; iw 14:11 Nitrofurantoin Macrocrystal; iw - Home Meds: 14:11 aspirin 81 mg Oral TbEC 1 tab once daily [Active]; sotalol 80 mg Oral tab 1 tab 2 times iw per day [Active]; - PMHx: 14:11 Atrial Fib; iw - PSHx: 14:11 Tubal ligation; Cholecystectomy; Tonsillectomy; iw - Family history:: not pertinent. - Hospitalizations: : No recent hospitalization is reported. ROS: 15:41 Constitutional: Negative for fever, chills, and weight loss, Neck: Negative for injury, rn pain, and swelling, Cardiovascular: + palpitations Respiratory: Negative for shortness of breath, cough, wheezing, and pleuritic chest pain, Abdomen/GI: + nausea MS/Extremity: Negative for injury and deformity, Skin: Negative for injury, rash, and discoloration, Neuro: Negative for headache, weakness, numbness, tingling, and seizure. Exam: 15:41 Constitutional: This is a well developed, well nourished patient who is awake, alert, rn and in no acute distress. Tearful. Head/Face: Normocephalic, atraumatic. Cardiovascular: Tachycardic, irregular Respiratory: No increased work of breathing, no retractions or nasal flaring. Abdomen/GI: soft, non-tender Skin: Warm, dry with normal turgor. Normal color with no rashes, no lesions, and no evidence of cellulitis. MS/ Extremity: Pulses equal, no cyanosis. Neurovascular intact. Full, normal range of motion. Equal circumference. Neuro: Awake and alert, GCS 15 Vital Signs: 14:05 BP 110 / 85; Pulse 132; Resp 16 S; Pulse Ox 98% on R/A; iw 14:37 BP 107 / 74; Pulse 83; Resp 20 S; Pulse Ox 100% on R/A; aa5 15:00 BP 98 / 68; Pulse 82; Resp 16 S; Pulse Ox 100% on R/A; aa5 15:30 BP 102 / 74; Pulse 84; Resp 18 S; Pulse Ox 100% on R/A; aa5 16:00 BP 99 / 72; Pulse 80; Resp 16 S; Pulse Ox 100% on R/A; aa5 MDM: 14:07 Patient medically screened. rn 14:34 ED course: Pt had episode of diarrhea, went to bathroom, when returned, had converted rn to sinus rhythm. Back to baseline. Asymptomatic, repeat EKG ordered, tests canceled, will observe in ER to see in stays in sinus.. 15:41 Differential diagnosis: cardiac arrhythmia, afib with rvr. Data reviewed: vital signs, rn nurses notes, EKG, radiologic studies, and as a result, I will discharge patient. Counseling: I had a detailed discussion with the patient and/or guardian regarding: the historical points, exam findings, and any diagnostic results supporting the discharge/admit diagnosis, the need for outpatient follow up, to return to the emergency department if symptoms worsen or persist or if there are any questions or concerns that arise at home. Special discussion: I discussed with the patient/guardian in detail that at this point there is no indication for admission to the hospital. It is understood, however, that if the symptoms persist or worsen the patient needs to return immediately for re-evaluation. ED course: patient back to baseline, sinus rhythm, converted on her own, will dc home with continuation of her regular medication and f/u.. 04/15 14:08 Order name: XRAY Chest (1 view) rn 04/15 14:08 Order name: EKG; Complete Time: : rn 04/15 14:08 Order name: Cardiac monitoring; Complete Time: 14: rn 04/15 14:08 Order name: EKG - Nurse/Tech; Complete Time: 14: rn 04/15 14:08 Order name: IV Saline Lock; Complete Time: 14:18 rn 04/15 14:08 Order name: Labs collected and sent; Complete Time: 14: rn 04/15 14:08 Order name: O2 Per Protocol; Complete Time: 14: rn 04/15 14:08 Order name: O2 Sat Monitoring; Complete Time: 14:18 rn Administered Medications: 14:35 Drug: NS 0.9% 500 ml Route: IV; Rate: bolus; Site: left forearm; aa5 14:49 Not Given (Patient Refused): Zofran (Ondansetron) 4 mg IVP once; over 2 minutes aa5 14:49 Not Given (Physician Discretion): Sotalol 40 mg PO once aa5 Disposition: 04/15/20 15:45 Discharged to Home. Impression: Paroxysmal atrial fibrillation. - Condition is Stable. - Discharge Instructions: Atrial Fibrillation. - Medication Reconciliation Form, Thank You Letter, Antibiotic Education, Prescription Opioid Use form. - Follow up: Private Physician; When: As needed; Reason: Recheck today's complaints, Re-evaluation by your physician. - Problem is new. - Symptoms have improved. Signatures: Dispatcher [employer] EDYesica Rogers, Hardy Miguel RN, MD MD rn Calderon, Audri, RN RN aa5 Corrections: (The following items were deleted from the chart) 14:37 14:09 PROTIME (+INR)+COAG.LAB.BRZ ordered. EDMS EDMS 14:38 14:09 BASIC METABOLIC PANEL+C.LAB.BRZ ordered. EDMS EDMS 14:38 14:09 CBC+H.LAB.BRZ ordered. EDMS EDMS 14:38 14:09 MAGNESIUM+C.LAB.BRZ ordered. EDMS EDMS 14:38 14:09 PROBNP+C.LAB.BRZ ordered. EDMS EDMS 14:38 14:09 TROPONIN (EMERG DEPT USE ONLY)+C.LAB.BRZ ordered. EDIA EDMS 16:22 15:45 04/15/2020 15:45 Discharged to Home. Impression: Paroxysmal atrial fibrillation. aa5 Condition is Stable. Forms are Medication Reconciliation Form, Thank You Letter, Antibiotic Education, Prescription Opioid Use. Follow up: Private Physician; When: As needed; Reason: Recheck today's complaints, Re-evaluation by your physician. Problem is new. Symptoms have improved. rn
--- NOTE | 2020-04-15 15:50 | RAD REPORT ---
EXAM DESCRIPTION: RAD - Chest Single View - 04/15/2020 3:22 pm CLINICAL HISTORY: PALPITATIONS COMPARISON: Portable September 2018 TECHNIQUE: AP portable chest image was obtained 04/15/2020 3:22 pm . FINDINGS: Lungs are clear. Heart and vasculature are normal. No measurable pleural effusion and no p neumothorax. No acute bony abnormality seen. No acute aortic findings suspected. IMPRESSION: No acute cardiopulmonary process.
[2020-04-15 16:52] VITALS: BP 107/74; O2SAT 100
--- NOTE | 2020-04-16 11:23 | EKG ---
Test Date: 2020-04-15 Test Time: 14:34:52 Tow Motor Driver: LUIS MEASUREMENT RESULTS: Intervals: Rate: 82 FL: 128 QRSD: 64 QT: 378 QTc: 441 [place]: P: 69 FL: 128 QRS: -5 T: 9 INTERPRETIVE STATEMENTS: * Pediatric ECG analysis * Sinus bradycardia Left axis deviation Low voltage QRS Compared to ECG 04/15/2020 14:10:06 Left-axis deviation now present Low QRS voltage now present Atrial fibrillation no longer present Ventricular premature complex(es) no longer present Myocardial infarct finding no longer present Electronically Signed On 04-16-20 11:20:25 CDT by Hans Muir
--- NOTE | 2020-04-16 11:23 | EKG ---
Test Date: 2020-04-15 Test Time: 14:10:06 Veterinarian Epidemiologist: RUTH ANN MEASUREMENT RESULTS: Intervals: Rate: 136 [place]: QRSD: 64 QT: 264 QTc: 397 [place]: P: [place]: QRS: 30 T: -43 INTERPRETIVE STATEMENTS: Atrial fibrillation with rapid ventricular response with premature ventricular or aberrantly conducted complexes Septal infarct, age undetermined Abnormal ECG Compared to ECG 09/19/2018 14:59:33 Ventricular premature complex(es) now present Myocardial infarct finding now present T-wave abnormality no longer present Electronically Signed On 04-16-20 11:20:28 CDT by Hans Muir
== END 2020-04-15 16:22 | disposition home or self-care (01) ==
LOC: ER 14:03
DX: I48.0 Paroxysmal atrial fibrillation (principal); Z79.82 Long term (current) use of aspirin; Z88.8 Allergy status to other drugs, medicaments and biological substances
CPT/HCPCS: 71045; 93005; 99285; J2405; J7040